=== PATIENT | female | born 1955 | race Caucasian/White ===

== ENCOUNTER 2021-11-03 13:56 | Emergency (ER) | payer OTHER, SELFPAY ==
--- NOTE | ~2021-11-03 | XR_ITS ---
XR chest 1V portable 11/03/2021 19:46 Indication: Cough and weakness Procedure: AP portable chest Comparison: No prior studies for comparison. Findings: There is bilateral diffuse airspace disease which may represent pneumonia or edema. No pleu ral effusion. Heart size normal. No pneumothorax. Impression: 1: Diffuse bilateral airspace disease which may represent pneumonia or edema. Reviewed, dictated and finalized at location A. [employer] Impression: 1: Diffuse bilateral airspace disease which may represent pneumonia or edema.
[2021-11-03 14:06] VITALS: BP 150/81; PULSE 78; RESP 16; TEMP 36.6; O2SAT 94
--- NOTE | 2021-11-03 18:43 | ECG_ITS ---
Measurements Intervals [place] Rate: 82 P: 45 NM: 181 QRS: -58 QRSD: 153 T: 48 QT: 407 QTc: 476 Interpretive Statements SINUS RHYTHM RIGHT BUNDLE BRANCH BLOCK LEFT ANTERIOR FASCICULAR BLOCK VOLTAGE CRITERIA FOR LVH BASELINE ARTIFACT- I, II, III, AVR, AVL, V1 ABNORMAL ECG Electronically Signed On 11-03-2021 20:06:41 [employer] by Adonis Jiménez D.O.
[2021-11-03 18:47] VITALS: BP 184/95; PULSE 80; RESP 22; O2SAT 97
[2021-11-03 18:48] VITALS: PULSE 80
[2021-11-03 19:10] LABS: Basophils Percent Auto 0.5 % (0.2-1.2); Eosinophils Percent Auto 0.2 % (0-4.4); Hematocrit 43.5 % (37.0-47.0); Hemoglobin 14.5 g/dL (12.0-15.0); Immature Granulocyte Absolute 0.03 K/mm3 (0.00-0.031); Immature Granulocyte Percent A 0.7 % (0-0.5); Lymphocytes Absolute Auto 1.14 K/mm3 (0.9-3.2); Lymphocytes Percent Auto 26.1 % (18.3-44.2); Mean Corpuscular HGB Conc 33.3 g/dl (32-36); Mean Corpuscular Hemoglobin 29.1 pg (26-34); Mean Corpuscular Volume 87.2 fl (80-100); Monocytes Absolute Auto 0.3 K/mm3 (0.1-0.6); Monocytes Percent Auto 7.3 % (2.6-8.5); Neutrophils Absolute Auto 2.9 K/mm3 (1.3-6.7); Neutrophils Percent Auto 65.2 % (45.5-73.1); Platelet Count Result 126 k/mm3 (150-375); Red Blood Count 4.99 M/mm3 (4.2-5.4); Red Cell Distribution Width 13.3 % (11.5-14.5); White Blood Count 4.4 K/mm3 (4.5-10.0)
[2021-11-03 19:21] LABS: Alanine Aminotransferase 75 U/L (4-35); Albumin Level 4.1 g/dL (3.5-5.1); Alkaline Phosphatase 132 U/L (38-126); Anion Gap 12 mmol/L (8-16); Aspartate Amino Transferase 122 U/L (14-36); Bilirubin,Total 0.7 mg/dL (0.2-1.3); Blood Urea Nitrogen 17 mg/dL (7-17); Calcium 9.1 mg/dL (8.4-10.2); Carbon Dioxide 24 mmol/L (22-30); Chloride 99 mmol/L (98-107); Estimated CRCL calculation 81 ml/min; Estimated Glomerular Filt Rate > 60; Glucose 339 mg/dL (65-110); Potassium 3.9 mmol/L (3.4-5.0); Sodium 135 mmol/L (137-145)
--- NOTE | 2021-11-03 19:22 | PC.NURSE ---
Refusing straight catheter at this time. UA cup at bedside.
[2021-11-03 19:30] VITALS: BP 160/78; PULSE 85; RESP 20; O2SAT 95
[2021-11-03 19:30] LABS: NT Pro B Type Natriuretic Pept 38 pg/mL (5-100)
[2021-11-03 19:32] LABS: Atypical Lymphocytes Present; Platelet Estimate Decreased (Adequate)
[2021-11-03 19:57] LABS: EDCOVIDSCREEN Negative (Negative)
[2021-11-03 20:30] VITALS: BP 140/77; PULSE 80; RESP 18; O2SAT 97
--- NOTE | 2021-11-03 20:47 | PC.NURSE ---
updated by phone per pt request.
--- NOTE | 2021-11-03 20:49 | ED.WEAKNESS ---
HPI - Weakness General Chief complaint: Weakness Stated complaint: weakness Time Seen by Provider: 11/03/21 18:38 Source: patient Mode of arrival: ambulatory Limitations: no limitations History of Present Illness HPI Narrative: 66-year-old with a history of hypertension here with complaints of not feeling well for past 1 week. She states she has nonproductive cough on and off with low-grade fever. She denies any shortness of breath, no history of nausea or vomiting. No history of chest pain MD Complaint: generalized weakness Onset (ago): week(s) (1) Duration: constant Location: generalized Migration: none Severity: moderate Relieving factors: none Associated symptoms: denies other symptoms Related Data Home Medications Medication Instructions Recorded [facility]-[place] bark-epimed tablet PO 04/03/20 04/27/21 v-aiupo-ioftocbkwd 200 mg-150 mg-75 mg tab cinnamon bark 500 mg capsule 500 mg PO DAILY 04/03/20 04/27/21 elderberry fruit 460 mg-elderberry cap PO 04/03/20 04/27/21 flower 115 mg capsule lactobacillus combination no.9 4 4,000 mmu cells PO DAILY 04/03/20 04/27/21 billion cell capsule multivit with 1 tablet PO DAILY 04/03/20 04/27/21 zozqqgbh-qcxh-EY-lutein 8 mg iron-400 mcg-300 mcg tablet turmeric 400 mg capsule mg PO 04/03/20 04/27/21 vitamin B complex 1 tablet PO DAILY 04/03/20 04/27/21 cholecalciferol (vitamin D3) 25 25 mcg PO DAILY 04/27/21 04/27/21 mcg (1,000 unit) capsule zinc 50 mg tablet 50 mg PO DAILY 04/27/21 04/27/21 Allergies Allergy/AdvReac Type Severity Reaction Status Date / Time bupropion [From Wellbutrin] AdvReac Unknown Rash Verified 11/03/21 18:53 Penicillins AdvReac Unknown Rash Verified 11/03/21 18:53 Sulfa (Sulfonamide AdvReac Unknown Rash Verified 11/03/21 18:53 Antibiotics) sulfur dioxide AdvReac Unknown Rash Verified 04/27/21 16:06 Review of Systems Review of Systems: All systems reviewed & are unremarkable except as noted in HPI and below Constitutional: Constitutional: Reports as per HPI Eyes: Eyes: Reports no additional eye complaints ENT: Reports system reviewed and no additional complaints, except as documented Cardiovascular: Cardiovascular: Reports no additional cardiovascular complaints Respiratory: Respiratory: Reports no additional respiratory complaints Gastrointestinal: Gastrointestinal: Reports no additional gastrointestinal complaints Musculoskeletal: Musculoskeletal: Reports no additional musculoskeletal complaints Integumentary/Breasts: Skin/Breast: Reports system reviewed and no additional complaints, except as docu Neurologic: Reports system reviewed and no additional complaints, except as documented Psychiatric: Psychiatric: Reports no additional psychiatric complaints PMFSH Past Medical History Medical History Depression Hyperlipidemia Irritable bowel syndrome with constipation Morbid (severe) obesity due to excess calories Type 2 diabetes mellitus without complications Surgical History Surgical History H/O: hysterectomy (~1994) History of gastric stapling (~1979) Social History Social History Social History: Tea Smoking status: Never smoker Alcohol intake: never Substance use: never Exam Narrative: GENERAL: Well-appearing, well-nourished, and in no acute distress. HEAD: Normocephalic, atraumatic. EYES: PERRLA and EOMI. NECK: Supple. CHEST: Clear to auscultation. No respiratory distress. HEART: Regular rate and rhythm. No murmur heard. Normal peripheral pulses. ABDOMEN: Soft, Obese , nontender, nondistended, normal active bowel sounds. EXTREMITIES: Normal range of motion. No edema. SKIN: Warm, dry, no rash. NEURO: No focal deficits. Alert and oriented x3. PSYCH: Normal mood and affect. Course Course Emergency Course: Patient
[2021-11-03 21:05] VITALS: BP 152/84; PULSE 84; RESP 20; O2SAT 95
[2021-11-05 14:42] LABS: SARS-CoV-2 RNA PCR Positive (Negative)
== END 2021-11-03 21:12 | disposition home or self-care (01) ==
PROVIDERS: Emergency Provider Family Medicine; PCP Nurse Practitioner Family
DX: E11.65 Type 2 diabetes mellitus with hyperglycemia (principal); J18.9 Pneumonia, unspecified organism; F32.A Depression, unspecified; E78.5 Hyperlipidemia, unspecified; E66.01 Morbid (severe) obesity due to excess calories; Z98.84 Bariatric surgery status; Z79.899 Other long term (current) drug therapy
CPT/HCPCS: 36415; 71045; 80053; 83880; 85025; 87426; 93005; 99284; C9803; U0003; U0005

== ENCOUNTER 2022-11-28 08:02 | Outpatient (CLI) | payer OTHER, SELFPAY ==
[2022-11-28 20:08] LABS: Alanine Aminotransferase 26 U/L (6-35); Albumin Level 4.1 g/dL (3.5-5.1); Alkaline Phosphatase 113 U/L (38-126); Anion Gap 7 mmol/L (8-16); Aspartate Amino Transferase 38 U/L (14-36); Bilirubin,Total 0.5 mg/dL (0.2-1.3); Blood Urea Nitrogen 12 mg/dL (7-17); Calcium 9.4 mg/dL (8.4-10.2); Carbon Dioxide 30 mmol/L (22-30); Chloride 105 mmol/L (98-107); Cholesterol 221 mg/dL (0-200); Estimated Glomerular Filt Rate > 60; Glucose 106 mg/dL (65-110); HDL Direct 48 mg/dL; Potassium 4.2 mmol/L (3.4-5.0); Sodium 142 mmol/L (137-145); Triglycerides 133 mg/dL (<150)
[2022-11-28 20:19] LABS: LDL Cholesterol Direct 124 mg/dL
[2022-11-28 20:59] LABS: Vitamin D 25 Hydroxy 49.3 ng/mL
[2022-11-28 21:32] LABS: Hemoglobin A1C 6.7 % (<5.7)
== END 2022-11-28 08:03 | disposition home or self-care (01) ==
LOC: ANHGOSHLAB 08:04
PROVIDERS: PCP Family Medicine; Visit Provider Nurse Practitioner Family
DX: E78.5 Hyperlipidemia, unspecified (principal); E11.9 Type 2 diabetes mellitus without complications; E55.9 Vitamin D deficiency, unspecified; Z00.00 Encounter for general adult medical examination without abnormal findings
CPT/HCPCS: 36415; 80053; 80061; 82306; 83036; 84443

== ENCOUNTER 2023-03-13 10:52 | Outpatient (CLI) | payer OTHER, BC, SELFPAY ==
[2023-03-13 18:44] LABS: Alanine Aminotransferase 32 U/L (6-35); Albumin Level 4.1 g/dL (3.5-5.1); Alkaline Phosphatase 101 U/L (38-126); Anion Gap 2 mmol/L (8-16); Aspartate Amino Transferase 71 U/L (14-36); Bilirubin,Total 0.6 mg/dL (0.2-1.3); Blood Urea Nitrogen 13 mg/dL (7-17); Calcium 9.6 mg/dL (8.4-10.2); Carbon Dioxide 34 mmol/L (22-30); Chloride 104 mmol/L (98-107); Cholesterol 219 mg/dL (0-200); Estimated Glomerular Filt Rate > 60; Glucose 108 mg/dL (65-110); HDL Direct 46 mg/dL; Potassium 4.3 mmol/L (3.4-5.0); Sodium 140 mmol/L (137-145); Triglycerides 107 mg/dL (<150)
[2023-03-13 18:55] LABS: LDL Cholesterol Direct 133 mg/dL
[2023-03-13 19:30] LABS: Basophils Absolute Auto 0.1 K/mm3 (0.0-0.1); Basophils Percent Auto 1.3 % (0.2-1.2); Eosinophils Absolute Auto 0.3 K/mm3 (0-0.3); Eosinophils Percent Auto 4.4 % (0-4.4); Hematocrit 39.5 % (37.0-47.0); Hemoglobin 12.8 g/dL (12.0-15.0); Immature Granulocyte Absolute 0.01 K/mm3 (0.00-0.031); Immature Granulocyte Percent A 0.1 % (0-0.5); Lymphocytes Absolute Auto 1.73 K/mm3 (0.9-3.2); Mean Corpuscular HGB Conc 32.4 g/dl (32-36); Mean Corpuscular Hemoglobin 29.6 pg (26-34); Mean Corpuscular Volume 91.4 fl (80-100); Mean Platelet Volume 12.3 fl (7.4-10.4); Monocytes Absolute Auto 0.4 K/mm3 (0.1-0.6); Monocytes Percent Auto 5.2 % (2.6-8.5); Platelet Count Result 238 k/mm3 (150-375); Red Blood Count 4.32 M/mm3 (4.2-5.4); Red Cell Distribution Width 13.1 % (11.5-14.5); White Blood Count 7.5 K/mm3 (4.5-10.0)
[2023-03-13 19:39] LABS: Creatinine Urine 170.2 mg/dL
[2023-03-13 19:43] LABS: MALB Creatinine Ratio 4.8 mg/g (0-30); Microalbumin Urine Random 8.1 mg/L (0-16.7)
[2023-03-13 20:08] LABS: Hemoglobin A1C 6.1 % (<5.7)
== END 2023-03-13 10:53 | disposition home or self-care (01) ==
LOC: ANHGOSHLAB 10:53
PROVIDERS: PCP Family Medicine; Visit Provider Nurse Practitioner Family
DX: E11.9 Type 2 diabetes mellitus without complications (principal); E78.5 Hyperlipidemia, unspecified
CPT/HCPCS: 36415; 80053; 80061; 82043; 83036; 85025

== ENCOUNTER 2023-09-15 08:17 | Outpatient (CLI) | payer OTHER, BC, SELFPAY ==
[2023-09-15 11:53] LABS: Basophils Absolute Auto 0.1 K/mm3 (0.0-0.1); Basophils Percent Auto 1.3 % (0.2-1.2); Eosinophils Absolute Auto 0.3 K/mm3 (0-0.3); Eosinophils Percent Auto 4.2 % (0-4.4); Hematocrit 40.8 % (37.0-47.0); Hemoglobin 13.2 g/dL (12.0-15.0); Immature Granulocyte Absolute 0.01 K/mm3 (0.00-0.031); Immature Granulocyte Percent A 0.1 % (0-0.5); Lymphocytes Absolute Auto 1.68 K/mm3 (0.9-3.2); Lymphocytes Percent Auto 24.5 % (18.3-44.2); Mean Corpuscular HGB Conc 32.4 g/dl (32-36); Mean Corpuscular Hemoglobin 29.7 pg (26-34); Mean Corpuscular Volume 91.7 fl (80-100); Mean Platelet Volume 12.1 fl (7.4-10.4); Monocytes Absolute Auto 0.5 K/mm3 (0.1-0.6); Monocytes Percent Auto 6.6 % (2.6-8.5); Neutrophils Absolute Auto 4.4 K/mm3 (1.3-6.7); Neutrophils Percent Auto 63.3 % (45.5-73.1); Platelet Count Result 219 k/mm3 (150-375); Red Blood Count 4.45 M/mm3 (4.2-5.4); Red Cell Distribution Width 13.2 % (11.5-14.5); White Blood Count 6.9 K/mm3 (4.5-10.0)
[2023-09-15 11:56] LABS: Alanine Aminotransferase 27 U/L (6-35); Albumin Level 4.1 g/dL (3.5-5.1); Alkaline Phosphatase 90 U/L (38-126); Anion Gap 4 mmol/L (8-16); Aspartate Amino Transferase 45 U/L (14-36); Bilirubin,Total 0.7 mg/dL (0.2-1.3); Blood Urea Nitrogen 17 mg/dL (7-17); Calcium 9.4 mg/dL (8.4-10.2); Carbon Dioxide 32 mmol/L (22-30); Chloride 103 mmol/L (98-107); Cholesterol 213 mg/dL (0-200); Estimated Glomerular Filt Rate > 60; Glucose 104 mg/dL (65-110); HDL Direct 56 mg/dL; Potassium 4.3 mmol/L (3.4-5.0); Sodium 139 mmol/L (137-145); Triglycerides 78 mg/dL (<150)
[2023-09-15 12:06] LABS: LDL Cholesterol Direct 120 mg/dL
[2023-09-15 12:26] LABS: Hemoglobin A1C 5.5 % (<5.7)
[2023-09-19 11:02] LABS: Vitamin D 1,25 (OH)2 Total 59 pg/mL (18-72); Vitamin D2 1,25 (OH)2 <8 pg/mL; Vitamin D3 1,25 (OH)2 59 pg/mL
== END 2023-09-15 08:18 | disposition home or self-care (01) ==
LOC: ANHGOSHLAB 08:19
PROVIDERS: PCP Family Medicine; Visit Provider Nurse Practitioner Family
DX: Z00.00 Encounter for general adult medical examination without abnormal findings (principal); E55.9 Vitamin D deficiency, unspecified; E78.5 Hyperlipidemia, unspecified; E11.9 Type 2 diabetes mellitus without complications
CPT/HCPCS: 36415; 80053; 80061; 82652; 83036; 84443; 85025